=== PATIENT | female | born 2000 | race Hispanic/Latino ===

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

== ENCOUNTER 2018-01-04 17:02 | Emergency (ER) | payer SELFPAY ==
[~2018-01-04] VITALS: Ht 165.1 cm; Wt 90.7 kg
--- OUTSIDE RECORDS SUMMARY | 2018-01-04 17:05 | XMS REPORT ---
[facility] Address Unknown Phone Unavailable Care Team Providers Care Instrument Specialist Name Role Phone PRINCESS JOHNSTON Unavailable Unavailable Problems This patient has no known problems. Allergies, Adverse Reactions, Alerts This patient has no known allergies or adverse reactions. Medications This patient has no known medications. Results Test Description Test Time Test Comments Text Results Atomic Results Result Comments CHEST 2 VIEWS [place] [address] Patient Name: DENISE ROSA MR #: [id number] : 2000 Age/Sex: 17/F Req # : [id number] Adm Physician: Ordered by: MANUELA SENIOR TECHNICAL APPLICATIONS SPECIALIST Report #: [id number] Location: ER Room/Bed: Procedure: [id number] DX/CHEST 2 VIEWS Exam Date: 12/23/17 Exam Time : 1211 REPORT STATUS: Signed PROCEDURE: Frontal and lateral views of the chest. COMPARISON: None. INDICATIONS: CHILLS, FEVER, COUGH FOR 2 DAYS FINDINGS: Lines/tubes: None. Lungs: The lungs are well inflated and clear. There is no evidence of pneumonia or pulmonary edema. Pleura: There is no pleural effusion or pneumothorax. Heart and mediastinum: The heart and the mediastinum are normal. Bones: No acute bony abnormality. Upper abdomen: Multiple surgical clips noted adjacent to an upper lumbar vertebral body and a clip overlying the left upper quadrant. No free air under the diaphragm. IMPRESSION: No acute cardiopulmonary disease. Dictated by: Senthil Joel M.D. on at 12:34 Electronically approved by: Senthil Joel M.D. on 12/23 at 12:34 Dictated By: SENTHIL JOEL MD 1234 Transcribed By: LINDA on 12/23/17 1234 COPY TO: MANUELA SENIOR NP
--- OUTSIDE RECORDS SUMMARY | 2018-01-04 17:05 | XMS REPORT | Continuity of Care Document ---
Author Author [facility] Organization [facility] Address [address] [place] [address] Phone Unavailable Care Team Providers Care Rail Bonder Name Role Phone RALPH APODACA MD PCP Insurance Providers Guarantor Denise Rosa Address [address] [place] [address] Email [email or web address] [facility] Policy Number [id number] Subscriber's Name Catrachita Rosa A Relationship 32 Mother Group Number [id number] Group Name [employer] Effective Date 14 Advance Directives Directive Response Recorded Date/Time Does the patient have an advance directive? No 11/02/14 3:32pm If yes, is advance directive on file with [facility]? No 11/02/14 3:32pm If not on file with [facility] will patient provide a copy? No 08/02/14 11:39pm Problems Medical Problem Onset Date Status Abdominal pain 11/02/2014 Acute Fever 11/02/2014 Acute Flank pain 08/02/2014 Acute Hydronephrosis of right kidney 08/02/2014 Acute Pyelonephritis 08/02/2014 Acute Medications Current Home Medications Medication Dose Units Route Directions Days Qty Instructions Start Date Sertraline Hcl (Zoloft) 50 Mg Tablet 150 Mg Oral Daily 30 Tab Tramadol Hcl (Ultram 50MG*) 50 Mg Tab 50 Mg Oral Four Times Daily Past Home Medications Medication Directions Ordered Status Acetaminophen With Codeine (Tylenol With Codeine #3 Tablet) 1 Each Tablet, 300 Mg Oral Every 6 Hours as needed for Pain Discontinued Cefuroxime Axetil (Ceftin) 500 Mg Tablet, 500 Mg Oral Twice A Day Discontinued Phenazopyridine Hcl (Pyridium) 100 Mg Tablet, 50 Mg Oral Daily as needed for Bladder Spasms Discontinued U , 1 Tab Oral Three Times A Day as needed for Bl Discontinued Social History Social History Problem Response Recorded Date/Time Onset Date Status Hx Psychiatric Problems No 11/02/2014 3:32pm Not Applicable Not Applicable Hx Eating Disorder No 08/02/2014 11:39pm Not Applicable Not Applicable Hx Substance Use Disorder No 08/02/2014 11:39pm Not Applicable Not Applicable Hx Depression No 08/02/2014 11:39pm Not Applicable Not Applicable Hx Alcohol Use No 08/02/2014 11:39pm Not Applicable Not Applicable Hx Substance Use Treatment No 08/02/2014 11:39pm Not Applicable Not Applicable Hx Physical Abuse No 08/02/2014 11:39pm Not Applicable Not Applicable Hospital Discharge Instructions No hospital discharge instruction information available. Plan of Care Discharge Date 12/23/17 2:57pm Disposition HOME, SELF-CARE Condition at Discharge Stable Instructions/Education Provided Fever - Adult Flu - Adult Forms Provided Work/School Excuse Prescriptions See Medication Section Referrals RALPH APODACA MD Order Date: As needed Address: [address] [place] [id number] Additional Instructions/Education DC Instructions: Call for follow up appointment to see your medical provider or the referral listed. Take the medication as prescribed. As discussed at the bedside, drink fluids, rest and return to the ER for any fever, shortness of breath, chest pain, trouble handling your oral secreations or any new concerns. Functional Status No functional status information available. Allergies, Adverse Reactions, Alerts No known allergies. Immunizations No immunization information available. Vital Signs Acute Vital Signs Vital Response Date/Time Temperature (Fahrenheit) 100.8 degrees F (97.6 - 99.5) 12/23/2017 2:58pm Pulse Pulse Rate (adult) 94 bpm (60 - 90) 12/23/2017 2:58pm Respiratory Rate 16 bpm (12 - 24) 12/23/2017 2:58pm Blood Pressure 142/71 mm Hg 12/23/2017 2:58pm Height 5 ft 5 in 12/23/2017 11:58am Weight 200 lb 12/23/2017 11:58am Body Mass Index 33.3 kg/m^2 12/23/2017 11:58am Results Laboratory Results Test Name Result Units Flags Reference Collection Date/Time Result Date/ Time Comments Influenza Virus Types A,B Antigen POSITIVE FLU B H NEGATIVE 12/23/2017 12:00pm 12/23/2017 2:04pm Results called to sofy whitley at 1401 on 12/23/17 by Adali Salomon. RB OK. Results faxed to in infection control at 1401 on 12/23/17 by Adali Salomon. Group A Streptococcus Screen NEGATIVE NEGATIVE 12/23/2017 12:00pm 2:04pm Procedures Procedure Status Date Provider(s) X-ray of chest, two views Active 12/23/17 MANUELA SENIOR DRUM PULLER Encounters Encounter Location Arrival/Admit Date Discharge/Depart Date Attending Provider Departed Emergency Room [facility] 12/23/17 11:47am 12/23 2:57pm PRINCESS JOHNSTON MD
[2018-01-04] MEDS ORDERED: IBUPROFEN 600 MG TAB PO STA (17:15)
--- NOTE | 2018-01-04 17:57 | Diagnostic Imaging Report ---
EXAMINATION: CHEST 2 VIEWS INDICATION: \S\R/O PNEUMONIA \[id number] \S\1730 \S.br\ COMPARISON: 12/23/2017 FINDINGS: PA and lateral views TUBES and LINES: None. LUNGS: Lungs are well inflated. Right upper lobe opacification. PLEURA: No pleural effusion or pneumothorax. HEART AND MEDIASTINUM: The cardiomediastinal silhouette is unremarkable. BONES AND SOFT TISSUES: No acute osseous lesion. Soft tissues are unremarkable. UPPER ABDOMEN: No free air under the diaphragm. IMPRESSION: Right upper lobe pneumonia. Signed by: Dr. Jose Miguel Wells MD on 01/04/2018 5:53 PM
[2018-01-04] MEDS ORDERED: CEFTRIAXONE SOD 1 GM VIAL IM ONE (18:00)
== END 2018-01-04 18:32 | disposition home or self-care (01) ==
LOC: ER 17:02
DX: R07.1 Chest pain on breathing (principal); R50.9 Fever, unspecified; R05 Cough; J15.9 Unspecified bacterial pneumonia
CPT/HCPCS: 71046; 99283; J0696

== ENCOUNTER 2018-11-29 22:47 | Emergency (ER) | payer SELFPAY ==
[~2018-11-29] VITALS: Ht 165.1 cm; Wt 68.0 kg
[2018-11-30] MEDS ORDERED: HYDROCODONE/APAP 5MG-325MG TAB PO ONE
--- NOTE | 2018-11-30 01:30 | Diagnostic Imaging Report ---
ANKLE 3VIEW LT - HOPD, FOOT 3 VIEW LT - HOPD Comparison: None Clinical history: Pain Findings: Left ankle and foot: Mild soft tissue swelling about the lateral ankle. Subtle linear lucency along the distal fibula as seen on oblique view. Ankle mortise is intact. Impression: Suspected nondisplaced fracture of the distal fibula. Correlate with site of pain and consider short-term follow-up radiographs in 1-2 weeks. Signed by: Dr Ellen Sierra MD on 11/30/2018 1:26 AM
== END 2018-11-30 01:16 | disposition home or self-care (01) ==
LOC: FSED 22:47
DX: S93.612A Sprain of tarsal ligament of left foot, initial encounter (principal); S93.492A Sprain of other ligament of left ankle, initial encounter; X50.1XXA Overexertion from prolonged static or awkward postures, initial encounter; Y99.0 Civilian activity done for income or pay
CPT/HCPCS: 81025; 99283

== ENCOUNTER 2020-01-28 05:44 | Emergency (ER) | payer OTHER ==
[~2020-01-28] VITALS: Ht 165.1 cm; Wt 97.5 kg
[2020-01-28] MEDS ORDERED: LIDOCAINE HCL 1% LOCAL INJ 20 ML VIAL ONE (06:24)
[2020-01-28 07:00] VITALS: BP 137/73
== END 2020-01-28 07:00 | disposition home or self-care (01) ==
LOC: FSED 05:44
DX: L05.01 Pilonidal cyst with abscess (principal); L03.317 Cellulitis of buttock
CPT/HCPCS: 10081; 99283; J2001

== ENCOUNTER 2020-07-13 16:05 | Emergency (ER) | payer OTHER ==
[~2020-07-13] VITALS: Ht 165.1 cm; Wt 97.5 kg
[2020-07-13] MEDS ORDERED: KETOROLAC TROMETHAMINE 30 MG/ML VIAL IM STA (16:20)
[2020-07-13] MEDS ORDERED: ONDANSETRON HCL 4 MG ORAL DISINTEGRATING TAB PO ONE (16:30)
--- NOTE | 2020-07-13 16:55 | Diagnostic Imaging Report ---
Exam: Head CT without contrast History: Headache Comparison studies: Prior head CT 11/04/2014 is unavailable on the PACS for comparison at the time of dictation. Technique: Axial images were obtained from the skull base to the vertex. Coronal and sagittal images reconstructed from the axial data. Dose modulation, iterative reconstruction, and/or weight based adjustment of the mA/kV was utilized to reduce the radiation dose to as low as reasonably achievable. Radiation dose: Total DLP: 969.14 mGy*cm. Estimated effective dose: DLP x 0.015 Intravenous contrast: None Findings: Scalp: No abnormalities. Bones: No fractures, blastic or lytic lesions. Brain sulci: Appropriate for age. Ventricles: Normal in size and configuration. No hydrocephalus. Extra-axial spaces: No masses, no fluid collection. Parenchyma: No abnormal densities. No masses, acute hemorrhage, acute or chronic vascular insults. Sellar/suprasellar region: No abnormalities. Craniocervical junction: Patent foramen magnum. No Chiari one malformation. Minimal cavities and mastoids: Clear. Included paranasal sinuses: Clear. IMPRESSION: No abnormalities. Signed by: Dr. Jordan Baltazar M.D. on 07/13/2020 4:52 PM
--- OUTSIDE RECORDS SUMMARY | 2020-07-13 17:13 | XMS REPORT | Clinical Summary ---
Author Author [facility] Address Unknown Phone Unavailable Care Team Providers Care Wildlife Removal Specialist Name Role Phone Pcp, No PCP Unavailable Allergies No Known Allergies Medications End Date Status Medication Sig Dispensed Refills Start Date 09/08/2019 nitrofurantoin, Take 1 20 capsule 0 macrocrystal-monohydrate, capsule (100 9 (MACROBID) 100 MG capsule mg total) by mouth 2 (two) times daily for 10 days. Active Problems Not on file Encounters Care Team Description Date Type Specialty Shant Rocha MD Abdominal pain, unspecified abdominal lo cation (Primary Dx); Acute cystitis without hematuria 08/29/2019 Emergency Emergency Medicine 08/29/2019 Travel after 07/13/2019 Social History Date Tobacco Use Types Packs/Day Years Used Never Smoker Smokeless Tobacco: Never Used Alcohol Use Drinks/Week oz/Week Comments Yes Sex Assigned at Date Recorded Not on file Industry Job Start Date Occupation Not on file Not on file Not on file Travel End Travel History Travel Start No recent travel history available. Last Filed Vital Signs Time Taken Vital Sign Reading 08/29/2019 2:41 PM CDT Blood Pressure 120/67 08/29/2019 2:41 PM CDT Pulse 89 08/29/2019 2:41 PM CDT Temperature 37.1 C (98.7 F) 08/29/2019 2:41 PM CDT Respiratory Rate 16 08/29/2019 10:48 AM CDT Oxygen Saturation 98% - Inhaled Oxygen - Concentration 08/29/2019 10:48 AM CDT Weight 108 kg (238 lb) - Height - - Body Mass Index - Plan of Treatment Not on file Procedures Comments Procedure Name Priority Date/Time Associated Diag nosis CT ABDOMEN/PELVIS WITHOUT STAT 08/29/2019 IV CONTRAST 1:36 PM CDT CBC W/PLT COUNT & AUTO STAT 08/29/2019 DIFFERENTIAL 11:16 AM CDT URINALYSIS W/ MICROSCOPIC STAT 08/29/2019 11:16 AM CDT SCREEN, URINE STAT 08/29/2019 11:16 AM CDT HEPATIC FUNCTION PANEL STAT 08/29/2019 11:16 AM CDT BASIC METABOLIC PANEL (7) STAT 08/29/2019 11:16 AM CDT LIPASE STAT 08/29/2019 11:16 AM CDT CBC W/PLT COUNT & AUTO STAT 08/29/2019 DIFFERENTIAL 11:16 AM CDT after 07/13/2019 Results * CT abdomen/pelvis without iv contrast (08/29/2019 1:36 PM CDT) Specimen Narrative Performed At FINAL REPORT [facility] ABDOMINAL AND PELVIS CT DATED 08/29/2019 CLINICAL INFORMATION:RLQ abdominal pain, appendicitis suspected (Age > 14y) r/o appendicitis TECHNIQUE:Axial images of the abdom en and pelvis were obtained from diaphragm to the pubic symphysis with G I contrast. Intravenous contrast was not given. This exam was performed according to [facility] departmental dose-optimization program, which includ es automated exposure control, adjustment of the mA and/or kV accordin g to patient size and/or use of interactive reconstruction technique . COMMENT: Liver and spleen are normal in size without focal abnormality.Gallbladder is contract ed. No gallstone or biliary dilatation is noted. Pancreas and adrenals are unremarkable. Left kidney is surgically absent. There is compensatory enlargement of the right kidney. No hydronephrosis, hydroureter, or urolithiasis is seen in the right kidney. The small and large bowel are unremarka ble. Appendix is normal in caliber. Uterus and ovaries are unremarkable. Th e urinary bladder is minimally distended. No mass, adenopathy or ascites is prese nt. IMPRESSION: 1. Status post left nephrectomy. 2. Otherwise unremarkable CT of the abd omen and pelvis. Signed: Georgiana Chin MD Report Verified Date/Time: 9 14:13:22 Reading Location: [facility] C013W Consult Reading Room Procedure Note Interface, External Ris In - 08/29/2019 2:15 PM CDT FINAL REPORT ABDOMINAL AND PELVIS CT DATED 08/29/2019 CLINICAL INFORMATION: RLQ abdominal pain, appendicitis suspected (Age > 14y) r/o appendicitis TECHNIQUE: Axial images of the abdomen and pelvis were obtained from diaphragm to the pubic symphysis with GI contrast. Intravenous contrast was not given. This exam was performed according to our departmental dose-optimization program, which includes automated exposure control, adjustment of the mA and/or kV according to patient size and/or use of interactive reconstruction technique. COMMENT: Liver and spleen are normal in size without focal abnormality. Gallbladder is contracted. No gallstone or biliary dilatation is noted. Pancreas and adrenals are unremarkable. Left kidney is surgically absent. There is compensatory enlargement of the right kidney. No hydronephrosis, hydroureter, or urolithiasis is seen in the right kidney. The small and large bowel are unremarkable. Appendix is normal in caliber. Uterus and ovaries are unremarkable. The urinary bladder is minimally distended. No mass, adenopathy or ascites is present. IMPRESSION: 1. Status post left nephrectomy. 2. Otherwise unremarkable CT of the abdo men and pelvis. Signed: Georgiana Chin MD Report Verified Date/Time: 08/29/2019 14:13:22 Reading Location: [facility] C013W Consult Reading Room Performing Organization Address City/State/Zipcode Ph one Number GE RIS * CBC with platelet count + automated diff (08/29/2019 11:16 AM CDT) WBC 11.8 (H) 4.0 - 10.0 K/L [facility], COUNT INCLUDES THE [facility] [place] RBC 4.49 4.00 - 5.00 M/L [facility], COUNT INCLUDES THE [facility] [place] Hemoglobin 12.2 12.0 - 15.0 GM/DL [facility], COUNT INCLUDES THE [facility] [place] Hematocrit 37.4 36.0 - 45.0 % [facility] [place] MCV 83.1 82.0 - 99.0 fL [facility] [place] MCH 27.1 27.0 - 33.0 pg [facility] [place] MCHC 32.6 32.0 - 36.0 GM/DL [facility] [place] RDW 16.5 (H) 10.3 - 14.2 % [facility] [place] Platelets 188 150 - 430 K/CU MM [facility] [place] MPV 9.6 6.5 - 10.5 fL [facility] % Neutros 83 % [facility] % Lymphs 8 % [facility] [place] % Monos 7 % [facility] % Eos 1 % [facility] [place] % Baso 1 % [facility] [place] # Neutros 9.83 (H) 1.80 - 8.00 K/L [facility] [place] # Lymphs 0.92 (L) 1.48 - 4.50 K/L [facility] [place] # Monos 0.81 0.00 - 1.30 K/L [facility] [place] # Eos 0.17 0.00 - 0.50 K/L [facility], COUNT INCLUDES THE [facility] [place] # Baso 0.07 0.00 - 0.20 K/L [facility], COUNT INCLUDES THE [facility] [place] Specimen Blood Performing Organization Address City/[facility] Ph one Number [address] [address] [facility] -[phone] [place] [address], COUNT INCLUDES THE [facility] [place] * Screen, urine (08/29/2019 11:16 AM CDT) Preg Test, Ur Negative [facility], COUNT INCLUDES [facility] [place] Specimen Urine Performing Organization Address City/[facility] Ph one Number [address] [place], [place] [id number] [place] [address], COUNT INCLUDES THE [facility] [place] * Urinalysis w/Microscopic (08/29/2019 11:16 AM CDT) Color, UA Yellow [facility] [place] Clarity, UA Slightly Hazy [facility], COUNT INCLUDES THE [facility] [place], [facility] Specific Ethel, UA 1.015 1.001 - 1.035 [facility] [place] pH, UA 7.0 5.0 - 8.0 [facility], COUNT INCLUDES THE [facility] [place], [facility] Protein, UA Negative Negative [facility] [place] Glucose, UA Negative Negative [facility], COUNT INCLUDES THE [facility] [place], [facility] Ketones, UA Negative Negative [facility] [place] Bilirubin, UA Negative Negative [facility], COUNT INCLUDES THE [facility] [place], [facility] Blood, UA Negative Negative [facility], COUNT INCLUDES THE [facility] [place], [facility] Nitrite, UA Negative Negative [facility], [facility], [facility] Leukocytes, UA Moderate (A) Negative [facility], [facility], [facility] Urobilinogen, UA 0.2 0.2 - 1.0 mg/dL [facility] Bacteria, UA Moderate [facility], [facility] RBC, UA None Seen /HPF [facility] WBC, UA 20-50 /HPF [facility] SQUAMOUS EPITHELIAL 5-10Comment: Clue cells seen. /HPF [facility] Specimen Source [facility], [facility], [facility] Specimen Urine Performing Organization Address [facility] Ph one Number [address] [address] [phone] [place] [address], [facility] * Lipase (08/29/2019 11:16 AM CDT) Lipase 35 (L) 40 - 240 U/L [facility] Specimen Blood Performing Organization Address [facility] Ph one Number [address] [address] -[phone] [place] [address], [facility] * Hepatic function panel (08/29/2019 11:16 AM CDT) Protein, Total 7.3 6.0 - 8.5 gm/dL [facility] Albumin 4.1 3.5 - 5.0 g/dL [facility], [facility], [facility] Total Bilirubin 0.9 0.1 - 1.2 mg/dL [facility], [facility] Bilirubin, Direct 0.3 0.0 - 0.4 mg/dL [facility], COUNT INCLUDES THE [facility], [facility] Alkaline Phosphatase 124 (H) 30 - 115 U/L [facility], COUNT INCLUDES THE [facility], [facility] AST 28 5 - 40 U/L [facility], COUNT INCLUDES [facility] [place] ALT 39 5 - 50 U/L [facility], COUNT INCLUDES THE [facility] [place], [facility] Specimen Blood Performing Organization Address [facility] Ph one Number [facility] [address] [place] [address] [facility], COUNT INCLUDES THE [facility] [place], [facility] * Basic Metabolic Panel (08/29/2019 11:16 AM CDT) Sodium 137 135 - 148 meq/L [facility], [facility], [facility] Potassium 3.8 3.6 - 5.5 meq/L [facility], COUNT INCLUDES THE [facility] [place], [facility] Chloride 104 98 - 106 meq/L [facility] CO2 24 24 - 32 meq/L [facility], COUNT INCLUDES [facility] BUN 10 10 - 26 mg/dL [facility], COUNT INCLUDES THE [facility], [facility] Creatinine 0.63 0.50 - 1.20 mg/dL [facility], COUNT INCLUDES THE [facility] [place], [facility] Glucose 94 70 - 110 mg/dL [facility], COUNT INCLUDES THE [facility] [place], [facility] Calcium 8.9 8.5 - 10.5 mg/dL [facility], COUNT INCLUDES THE [facility] [place], [facility] EGFR Comment: INSUFFICIENT CLINICAL [facility] DATA TO CALCULATE ESTIMATED [facility] GFR. [place], COUNT INCLUDES THE [facility], [facility] Specimen Blood Performing Organization Address City/[facility] Ph one Number [facility] [id number] [place] [address] [facility], [facility] after 07/13/2019
--- OUTSIDE RECORDS SUMMARY | 2020-07-13 17:14 | XMS REPORT | Continuity of Care Document ---
Author Author [facility] t Organization [facility] Address [address] [place] [address] Phone Unavailable Care Team Providers Care Instructor Hairspring Name Role Phone NO, PCP PCP Unavailable JSESA CHAPPELL Attphys Unavailable Aurora Harrison MD Attphys AURORA HARRISON Attphys Unavailable Esthela CONNELLY Attphys Unavailable Samantha MCGRAW Attphys Unavailable Casandra JOHNSTON Attphys Unavailable Payers Payer Name Policy Type Policy Number Effective Date Expiration Date Jennifer rollins [facility] [id number] [facility] [id number] 2014 00:00:00 [facility] Problems Condition Name Condition Details Condition Category Status Onset Date Resolution Date Last Treatment Date Treating Clinician Comments Source Abdominal pain Abdominal pain Problem Active 2014-11-02 00:00:00 [facility] Fever Fever Problem Active 2014-11-02 00:00:00 [facility] Flank pain Flank pain Problem Active 2014-08-02 00:00:00 [facility] Hydronephrosis of right kidney Hydronephrosis of right kidney Probl em Active 2014-08-02 00:00:00 [facility] Pyelonephritis Pyelonephritis Problem Active 2014-08-02 00:00:00 [facility] Allergies, Adverse Reactions, Alerts Allergy Name Allergy Type Status Severity Reaction(s) Onset Date Inacti ve Date Treating Clinician Comments Source No Known Allergies DA Active U 2020-02-27 00:00:00 [facility] No Known Allergies DA Active U 2011-09-12 00:00:00 [facility] Social History Social Habit Start Date Stop Date Quantity Comments Source Sex Assigned At [facility] Smoking Status Start Date Stop Date Source Never smoker [facility] Medications Ordered Medication Name Filled Medication Name Start Date Stop Da te Current Medication? Ordering Clinician Indication Dosage Frequency Signature (SIG) Comments Components Source nitrofurantoin, macrocrystal-monohydrate, (MACROBID) 100 MG capsule 2019-08-29 00:00:00 2019-09-08 23:59:00 No 100mg Q.5D Take 1 capsule (100 mg total) by mouth 2 (two) times daily for 10 days. [facility] Sertraline Hcl (Zoloft) 50 Mg Tablet Sertraline Hcl (Zoloft) 50 Mg Tablet Yes 150 Daily [facility] Tramadol Hcl (Ultram 50MG*) 50 Mg Tab Tramadol Hcl (Ultram 50MG*) 5 0 Mg Tab Yes 50 Four Times Daily [facility] Acetaminophen With Codeine (Tylenol With Codeine #3 Tablet) 1 Each Tablet, 300 Mg Oral Acetaminophen With Codeine (Tylenol With Codeine #3 Tablet) 1 Each Tablet, 300 Mg Oral 2014-11-07 00:00:00 No 300 Every 6 Hours as needed for Pain [facility] Cefuroxime Axetil (Ceftin) 500 Mg Tablet, 500 Mg Oral Cefuroxime Axetil (Ceftin) 500 Mg Tablet, 500 Mg Oral 2014-11-01 00:00:00 No 500 Twice A Day [facility] Phenazopyridine Hcl (Pyridium) 100 Mg Tablet, 50 Mg Or al Phenazopyridine Hcl (Pyridium) 100 Mg Tablet, 50 Mg Oral 2014-11-01 00:00:00 No 50 Daily as needed for Bladder Spasms [facility] U , 1 Tab Oral U , 1 Tab Oral 2014-11-01 00:00:00 No 1 Three Times A Day as needed for Bl [facility] Vital Signs Vital Name Observation Time Observation Value Comments Source Systolic blood pressure 2019-08-29 14:41:00 120 mm[Hg] [facility] Diastolic blood pressure 2019-08-29 14:41:00 67 mm[Hg] [facility] Heart rate 2019-08-29 14:41:00 89 /min [facility] Body temperature 2019-08-29 14:41:00 37.06 Mirta [facility] Respiratory rate 2019-08-29 14:41:00 16 /min [facility] Body weight Measured 2019-08-29 10:48:00 107.956 kg [facility] Oxygen saturation in Arterial blood by Pulse oximetry 2018-10 10:48:00 98 /[facility] Procedure Date / Time Performed Performing Clinician [facility] bri CT ABDOMEN/PELVIS WITHOUT IV CONTRAST 2019-08-29 13:36:00 Shant Harrison [facility] LIPASE 2019-08-29 11:16:00 Shant Harrison [facility] BASIC METABOLIC PANEL (7) 2019-08-29 11:16:00 Shant Harrison [facility] HEPATIC FUNCTION PANEL 2019-08-29 11:16:00 Shant Harrison [facility] SCREEN, URINE 2019-08-29 11:16:00 Shant Harrison I [facility] URINALYSIS W/ MICROSCOPIC 2019-08-29 11:16:00 Shant Harrison [facility] CBC W/PLT COUNT & AUTO DIFFERENTIAL 2019-08-29 11:16:00 Ashwini Harrison [facility] Encounters Start Date/Time End Date/Time Encounter Type Admission Type [facility] Care Department Encounter ID Source 2020-01-28 05:44:00 2020-01-28 07:00:00 Departed Emergency Room [facility] [id number] [facility] 2019-11-02 14:07:00 2019-11-02 14:37:00 Departed Emergency Room [facility] [id number] [facility] 2018-11-29 22:47:00 2018-11-30 01:16:00 Departed Emergency Room 1 NESHA CONNELLY [facility] [id number] [facility] 2018-01-04 17:02:00 2018-01-04 18:32:00 Departed Emergency Room ER KASANDRA MCGRAW [facility] [id number] [facility] 2017-12-23 11:47:00 2017-12-23 14:57:00 Departed Emergency Room ER PRINCESS JOHNSTON [facility] [id number] [facility] Results Test Description Test Time Test Comments Results Result Comments Source CT BRAIN WO-HOPD 2020-07-13 16:48:00 [place] [address] Patient Name: DENISE ROSA MR #: [id number] : 2000 Age/Sex: 20/F Req #: [id number] Adm Physician: Ordered by: JESSA CHAPPELL MD Report #: [id number] Location: FS Room/Bed: Procedure: [id number] HOPD/CT BRAIN WO-HOPD Exam Date: 07/13/20 Exam Time: 1637 REPORT STATUS: Signed Exam: Head CT without contrast History: Headache Comparison studies: Prior head CT 11/04/2014 is unavailable on the PACS for comparison at the time of dictation. Technique: Axial images were obtained from the skull base to the vertex. Coronal and sagittal images reconstructed from the axial data. Dose modulation, iterative reconstruction, and/or weight based adjustment of the mA/kV was utilized to reduce the radiation dose to as low as reasonably achievable. Radiation dose: Total DLP: 969.14 mGy*cm. Estimated effective dose: DLP x 0.015 Intravenous contrast: None Findings: Scalp: No abnormalities. Bones: No fractures, blastic or lytic lesions. Brain sulci: Appropriate for age. Ventricles: Normal in size and configuration. No hydrocephalus. Extra-axial spaces: No masses, no fluid collection. Parenchyma: No abnormal densities. No masses, acute hemorrhage, acute or chronic vascular insults. Sellar/suprasellar region: No abnormalities. Craniocervical junction: Patent foramen magnum. No Chiari one malformation. Minimal cavities and mastoids: Clear. Included paranasal sinuses: Clear. IMPRESSION: No abnormalities. Signed by: Dr. Isabella Francisco M.D. on 07/13/2020 4:52 PM Dictated By: ISABELLA FRANCISCO MD 51 Transcribed By: BRIAN on 07/13/201651 COPY TO: JESSA CHAPPELL MD - ANASTASIYA AB/PEL/SC/LTD 2020-05-05 18:58:00 Name: DENISE ROSA [facility] [place] [place] : 2000 Age/S: 20 / F [address] [place] [address] Unit #: [id number] Loc: [place] [address] Phys: Justen Virgen MD Acct: [id number] Dis Date: Status: PRE ER PHONE #: [phone] Exam Date: 05/05/2020 1849 FAX #: [phone] Reason: see US Pelvic Non OB Complete EXAMS: CPT CODE: [id number] ANASTASIYA AB/PEL/SC/LTD 46717 PROCEDURE: PELVIC ULTRASOUND INDICATION: heavy vaginal bleeding one month COMPARISON: There are no previous relevant studies available for correlation. TECHNIQUE: Grayscale, color and Doppler transabdominal and transvaginal imaging of the pelvis was performed with standard technique. Transvaginal ultrasound is obtained for further evaluation of the endometrium and adnexal regions. LIMITATIONS: Transabdominal technique with suboptimal acoustical window. FINDINGS: UTERUS: Uterus measures 8.3 x 5.2 x 6.1 cm. No uterine mass. Endometrium is estimated 8 mm AP thickness. No endom etrial mass fluid collection or increased vascularity to indicate retained products of conception. RIGHT OVARY: The right ovary measures 3.3 x 2.5 x 2.7 cm. Small cyst within the ovary measuring 1.8 x 1.3 x 1.7 cm. Flow present in the ovary with arterial waveform obtained. LEFT OVARY: The left ovary measures 3.1 x 1.9 x 1.6 cm. Normal morphology. Internal flow with arterial waveform obtained. BLADDER: Contracted, otherwise unremarkable. Comments: No adnexal masses. No free intraperitoneal fluid. IMPRESSION: Normal transabdominal pelvic ultrasound. No sonographic evidence for retained products of conception. SL: KL-H at 1858 Reported and signed by: Hugo Cervantes M.D. PAGE 1 Signed Report (CONTINUED) Name: DENISE ROSA [facility] [place] : 2000 Age/S: 20 / F [address] [place] [address] Unit #: [id number] Loc: [place] [address] Phys: Justen Virgen MD Acct: [id number] Dis Date: Status: PRE ER PHONE #: [phone] Exam Date: 05/05/2020 1849 FAX #: [phone] Reason: see US Pelvic Non OB Complete EXAMS: CPT CODE: [id number] DUP AB/PEL/SC/LTD 08145 <Continued> CC: Justen Virgen MD; Sarah Trejo MD Technologist: Sergio West Trndeb Date/Time: 05/05/2020 (1857) Nunu Orig Print D/T: S: 05/05/2020 (1900) Probe: PAGE 2 Signed Report - US PELVIS COMPLETE 2020-05-05 18:58:00 Name: DENISE ROSA [facility] [place] : 2000 Age/S: 20 / F [address] [place] [address] Unit #: [id number] Loc: [place] [address] Phys: Justen Virgen MD Acct: [id number] Dis Date: Status: PRE ER PHONE #: [phone] Exam Date: 05/05/20201847 FAX #: [phone] Reason: heavy vaginal bleeding one month EXAMS: CPT CODE: [id number] US PELVIS COMPLETE 44285 PROCEDURE: PELVIC ULTRASOUND INDICATION: heavy vaginal bleeding one month COMPARISON: There are no previous relevant studies available for correlation. TECHNIQUE: Grayscale, color and Doppler transabdominal and transvaginal imaging of the pelvis was performed with standard technique. Transvaginal ultrasound is obtained for further evaluation of the endometrium and adnexal regions. LIMITATIONS: Transabdominal technique with suboptimal acoustical window. FINDINGS: UTERUS: Uterus measures 8.3 x 5.2 x 6.1 cm. No uterine mass. Endometrium is estimated 8 mm AP thickness. No endom etrial mass fluid collection or increased vascularity to indicate retained products of conception. RIGHT OVARY: The right ovary measures 3.3 x 2.5 x 2.7 cm. Small cyst within the ovary measuring 1.8 x 1.3 x 1.7 cm. Flow present in the ovary with arterial waveform obtained. LEFT OVARY: The left ovary measures 3.1 x 1.9 x 1.6 cm. Normal morphology. Internal flow with arterial waveform obtained. BLADDER: Contracted, otherwise unremarkable. Comments: No adnexal masses. No free intraperitoneal fluid. IMPRESSION: Normal transabdominal pelvic ultrasound. No sonographic evidence for retained products of conception. SL: KL-H at 1858 Reported and signed by: Hugo Cervantes M.D. PAGE 1 Signed Report (CONTINUED) Name: DENISE ROSA [facility] Lesia Faust : 2000 Age/S: 20 / F [address] [place] [address] Unit #: [id number] Loc: [place] [address] Phys: Justen Virgen MD Acct: [id number] Dis Date: Status: PRE ER PHONE #: [phone] Exam Date: 05/05/20201847 FAX #: [phone] Reason: heavy vaginal bleeding one month EXAMS: CPT CODE: [id number] US PELVIS COMPLETE 46517 <Continued> CC: Justen Virgen MD; Sarah Trejo MD Technologist: Sergio West Trnscb Date/Time: 05/05/2020 (1857) Nunu Orig Print D/T: S: 05/05/2020 (279) Probe: PAGE 2 Signed Report URINALYSIS COMPLETE 2020-05-05 18:39:00 Test Item UA COLOR (test code = COLU) RED YEL/STRAW A UA APPEARANCE (test code = APPU) SL CLOUDY CLEAR UA GLUCOSE DIPSTICK (test code = DGLUU) NEGATIVE NEGATIVE UA BILIRUBIN DIPSTICK (test code = BILU) NEGATIVE NEGATIVE UA KETONE DIPSTICK (test code = KETU) NEGATIVE NEGATIVE UA SPECIFIC GRAVITY (test code = SGU) 1.013 1.005-1.030 N UA BLOOD DIPSTICK (test code = IDANIA) 3+ NEGATIVE A UA PH DIPSTICK (test code = DINAH) 6.0 5.0-7.0 N UA PROTEIN DIPSTICK (test code = PROU) 2+ NEGATIVE A UA UROBILINIOGEN DIPSTICK (test code = URO) 0.2 mg/dL 0.2-1.0 UA NITRITE DIPSTICK (test code = ANGELICA) NEGATIVE NEGATIVE UA LEUKOCYTE ESTERASE DIPSTICK (test code = LEUU) TRACE NEGA TIVE A UA RBC (test code = RBCU) >50 RBC/HPF 0-3 A UA WBC NO REFLEX (test code = WBCUCL) 4-9 WBC/HPF 0-3 A UA BACTERIA (test code = BACU) NONE SEEN /HPF NONE SEEN UA SQUAMOUS CELLS (test code = SQU) 0-5 /HPF NONE SEEN UA MUCUS (test code = MUCU) TRACE /LPF NONE SEEN PROTHROMBIN [id number] 18:33:00* Test Item Value Reference Range Interpretation Comments PROTHROMBIN TIME PATIENT (test code = PTP) 11.1 SECONDS 9.3-12.9 N INTERNATIONAL NORMAL RATIO (test code = INR) 1.0 0.8-1.2 N TARGET INR BY INDICATION Indication INR1. Prophylaxis of venous thrombosis 2.0 - 3.0 (orthopedic surgery), Prophylaxis of venous thrombosis (other than high-risk surgery), Treatment of Deep Vein Thrombosis/Pulmonary Embolism, Prevention of systemic embolism - Tissue heart valves, Acute Myocardial Infarction (to prevent systemic embolism), Valvular heart disease, Atrial Fibrillation, Bileaflet mechanical valve in aortic position.2. Mechanical prosthetic valves (high risk), 2.5 - 3.5 Presence of Lupus Anticoagulant or Antiphospholipid Antibodies, Prevention of systemic embolism - Acute Myocardial Infarction (to prevent recurrent infarct). CBC W/AUTO [id number] 18:27:00* Test Item Value Reference Range Interpretation Comments WHITE BLOOD CELL (test code = WBC) 8.46 x10 3/uL 4.5-11.0 RED BLOOD CELL (test code = RBC) 4.50 x10 6/uL 3.54-5.02 N HEMOGLOBIN (test code = HGB) 11.0 g/dL 11.0-15.0 N HEMATOCRIT (test code = HCT) 36.3 % 33.0-45.0 N MEAN CELL VOLUME (test code = MCV) 80.7 fL 81.0-99.0 L MEAN CELL HGB (test code = MCH) 24.4 pg 27.0-33.0 L MEAN CELL HGB CONCETRATION (test code = MCHC) 30.3 g/dL 33.0-37. 0 L RED CELL DISTRIBUTION WIDTH CV (test code = RDW) 17.1 % 11.5- 14.5 H RED CELL DISTRIBUTION WIDTH SD (test code = RDW-SD) 48.8 fL 37 .0-54.0 N PLATELET COUNT (test code = PLT) 202 x10 3/uL 150-400 N MEAN PLATELET VOLUME (test code = MPV) 12.9 fL 7.0-9.0 H NEUTROPHIL % (test code = NT%) 57.8 % 56.0-77.0 N IMMATURE GRANULOCYTE % (test code = IG%) 0.4 % 0.0-2.0 N LYMPHOCYTE % (test code = LY%) 33.0 % 14.0-32.0 H MONOCYTE % (test code = MO%) 5.6 % 4.8-9.0 N EOSINOPHIL % (test code = EO%) 2.7 % 0.3-3.7 N BASOPHIL % (test code = BA%) 0.5 % 0.0-2.0 N NUCLEATED RBC % (test code = NRBC%) 0.0 % 0-0 N NEUTROPHIL # (test code = NT#) 4.90 x10 3/uL 2.0-7.6 N IMMATURE GRANULOCYTE # (test code = IG#) 0.03 x10 3/uL 0.00-0.03 N LYMPHOCYTE # (test code = LY#) 2.79 x10 3/uL 1.0-3.8 N MONOCYTE # (test code = MO#) 0.47 x10 3/uL 0.1-0.8 N EOSINOPHIL # (test code = EO#) 0.23 x10 3/uL 0.0-0.2 H BASOPHIL # (test code = BA#) 0.04 x10 3/uL 0.0-0.2 N NUCLEATED RBC # (test code = NRBC#) 0.00 x10 3/uL 0.0-0.1 N MANUAL DIFF REQUIRED (test code = MDIFF) NO COMPREHENSIVE METABOLIC [id number] 18:23:00* Test Item Value Reference Range Interpretation Comments SODIUM (test code = NA) 138 mEq/L 134-147 N POTASSIUM (test code = K) 3.9 mEq/L 3.4-5.0 N CHLORIDE (test code = CL) 110 mEq/L 100-108 H CARBON DIOXIDE (test code = CO2) 22 mEq/L 21-33 N ANION GAP (test code = GAP) 10 0-20 N GLUCOSE (test code = GLU) 84 mg/dL 70-110 N BLOOD UREA NITROGEN (test code = BUN) 17 mg/dL 7-18 N GLOMERULAR FILTRATION RATE (test code = GFR) 78.3 110-120 L Units of measure = ml/min/1.73 m2 CREATININE (test code = CREAT) 0.9 mg/dL 0.6-1.3 N TOTAL PROTEIN (test code = PROT) 7.0 g/dL 6.4-8.2 N ALBUMIN (test code = ALB) 3.30 g/dL 3.4-5.0 L CALCIUM (test code = CA) 8.3 mg/dL 8.0-10.5 N BILIRUBIN TOTAL (test code = BILT) 0.2 MG/DL <1.5 N SGOT/AST (test code = AST) 29 IUnit/L 15-37 N SGPT/ALT (test code = ALT) 67 IUnit/L 15-65 H ALKALINE PHOSPHATASE TOTAL (test code = ALKP) 143 IUnit/L 20-125 H HCG SERUM [id number] 18:23:00* Test Item Value Reference Range Interpretation Comments HCG SERUM QUAL (test code = HCGQL) SERUM NEGATIVE NEGATIVE COMPREHENSIVE METABOLIC [id number] 18:17:00* Test Item Value Reference Range Interpretation Comments SODIUM (test code = NA) 138 mEq/L 134-147 N POTASSIUM (test code = K) 3.9 mEq/L 3.4-5.0 N CHLORIDE (test code = CL) 110 mEq/L 100-108 H CARBON DIOXIDE (test code = CO2) 22 mEq/L 21-33 N ANION GAP (test code = GAP) 10 0-20 N GLUCOSE (test code = GLU) 84 mg/dL 70-110 N BLOOD UREA NITROGEN (test code = BUN) 17 mg/dL 7-18 N GLOMERULAR FILTRATION RATE (test code = GFR) 110-120 CREATININE (test code = CREAT) mg/dL 0.6-1.3 TOTAL PROTEIN (test code = PROT) g/dL 6.4-8.2 ALBUMIN (test code = ALB) g/dL 3.4-5.0 CALCIUM (test code = CA) 8.3 mg/dL 8.0-10.5 N BILIRUBIN TOTAL (test code = BILT) MG/DL <1.5 SGOT/AST (test code = AST) IUnit/L 15-37 SGPT/ALT (test code = ALT) IUnit/L 15-65 ALKALINE PHOSPHATASE TOTAL (test code = ALKP) IUnit/L 20-125 HCG SERUM [id number] 18:17:00* Test Item Value Reference Range Interpretation Comments HCG SERUM QUAL (test code = HCGQL) NEGATIVE COMPREHENSIVE METABOLIC [id number] 18:17:00* Test Item Value Reference Range Interpretation Comments SODIUM (test code = NA) 138 mEq/L 134-147 N POTASSIUM (test code = K) 3.9 mEq/L 3.4-5.0 N CHLORIDE (test code = CL) 110 mEq/L 100-108 H CARBON DIOXIDE (test code = CO2) 22 mEq/L 21-33 N ANION GAP (test code = GAP) 10 0-20 N GLUCOSE (test code = GLU) 84 mg/dL 70-110 N BLOOD UREA NITROGEN (test code = BUN) 17 mg/dL 7-18 N GLOMERULAR FILTRATION RATE (test code = GFR) 110-120 CREATININE (test code = CREAT) mg/dL 0.6-1.3 TOTAL PROTEIN (test code = PROT) g/dL 6.4-8.2 ALBUMIN (test code = ALB) g/dL 3.4-5.0 CALCIUM (test code = CA) 8.3 mg/dL 8.0-10.5 N BILIRUBIN TOTAL (test code = BILT) MG/DL <1.5 SGOT/AST (test code = AST) IUnit/L 15-37 SGPT/ALT (test code = ALT) IUnit/L 15-65 ALKALINE PHOSPHATASE TOTAL (test code = ALKP) IUnit/L 20-125 HCG SERUM [id number] 18:17:00* Test Item Value Reference Range Interpretation Comments HCG SERUM QUAL (test code = HCGQL) SERUM NEGATIVE NEGATIVE SURGICAL [id number] 16:04:00 RUN DATE: 04/09/20 [facility] *LIVE* PAGE 1 RUN TIME: 1604 Specimen Inqui ry RUN USER: INTERFACE PATIENT: DENISE ROSA ACCT #: [id number] LOC: [facility] U #: [id number] AGE/SX: 20/F ROOM: [facility] RE04/04/20REG DR: Me isaiah Saini : [birth year] BED: 1 DIS: 04/06/20 STATUS: DIS IN TLOC: SPEC #: [id number] RECD: 04/05/20 STATUS: EDINSON REQ #: [id number] DAPHNE: 04/05/[address]: Me isaiah Saini DO ENTERED: 04/08/20 SP TYPE: SURG SPEC OTHR DR: Christiano R ladanerrDonna Sapp MD, Lauren C MD Tran, Lynn MDORDERED: GM LEVEL 4 CODES: [id number] - PLACENTA, NOS COPIES TO: Self Ref erred Solange Saini DO 17 [place], [place] [address] Donna Waite MD [address] [facility] [address] [place] [address] [id number] Sarah Trejo MD #17 [place], [place] [id number] Megan Henry MD 7[address] [facility] [address] [place] [address] [id number] PROCEDURES: GM LEVEL 4 (Incomplete) TISSUES: 1. PLACENTA, NOS - Placenta, 3rd trimester FINAL DIAGNOSIS P asif, 3rd trimester: Michel placenta (460 g, 75th percentile for gestat ional age). CONTINUED ON NEXT PAGE ---- --------RUN DATE: 04/09/20 [facility] *LIVE* PAGE 2 RUN TIME: 1604 Specimen Inquiry RUN USER: INTERFACE SPEC #: [id number] PATIENT: DENISE ROSA #[id number] (Continued) GROSS AND MICROSCOPIC GROSS EXAMINATION: Received in formalin labeled placenta is a 460 g 15 x 15 x 2.2 cm placenta. The surface is bluegray with tortuous vessels on the surface. The maternal surface is intact with focal adherent hemorrhage. Th e centrally inserted 3 vessel umbilical cord measures 19 cm in length 1.3 cm i n diameter. The membranes are thin and translucent. The parenchyma is beefy red without identifiable lesions. SECTION CO DE: (A) Membranes (B) umbilical cord (C)-(E) placental parenchyma. MICROSCOPIC EXAM INATION: Sections of the umbilical cord reveal three vessels without si gnificant inflammation. The membranes are unremarkable. The fe carmen surface of the placenta does not show a significant inflammatory infiltrat e. Maturation is appropriate for gestational age. The underlying maternal deci abdirashid beneath the placenta contains a mixed inflammatory infiltrate. POST-OP DIAGNOSIS , 34.2/7 EGA, premature rupture of membranes, spontaneous vaginal delivery PRE-OP DIAGNOSIS , 34.2/7 EGA, premature rupture of membranes----- ------- Signed SIGNATURE ON Isabella Muhammad 04/09 1604 E ND OF REPORT CBC W/AUTO [id number] 07:15:00* Test Item Value Reference Range Interpretation Comments WHITE BLOOD CELL (test code = WBC) 14.40 x10 3/uL 4.5-11.0 H RED BLOOD CELL (test code = RBC) 3.20 x10 6/uL 3.54-5.02 L HEMOGLOBIN (test code = HGB) 8.0 g/dL 11.0-15.0 L HEMATOCRIT (test code = HCT) 26.2 % 33.0-45.0 L MEAN CELL VOLUME (test code = MCV) 81.9 fL 81.0-99.0 N MEAN CELL HGB (test code = MCH) 25.0 pg 27.0-33.0 L MEAN CELL HGB CONCETRATION (test code = MCHC) 30.5 g/dL 33.0-37. 0 L RED CELL DISTRIBUTION WIDTH CV (test code = RDW) 14.7 % 11.5- 14.5 H RED CELL DISTRIBUTION WIDTH SD (test code = RDW-SD) 43.5 fL 37 .0-54.0 N PLATELET COUNT (test code = PLT) 172 x10 3/uL 150-400 N MEAN PLATELET VOLUME (test code = MPV) 12.5 fL 7.0-9.0 H NEUTROPHIL % (test code = NT%) 78.0 % 56.0-77.0 H IMMATURE GRANULOCYTE % (test code = IG%) 0.6 % 0.0-2.0 N LYMPHOCYTE % (test code = LY%) 14.9 % 14.0-32.0 N MONOCYTE % (test code = MO%) 6.3 % 4.8-9.0 N EOSINOPHIL % (test code = EO%) 0.1 % 0.3-3.7 L BASOPHIL % (test code = BA%) 0.1 % 0.0-2.0 N NUCLEATED RBC % (test code = NRBC%) 0.0 % 0-0 N NEUTROPHIL # (test code = NT#) 11.24 x10 3/uL 2.0-7.6 H IMMATURE GRANULOCYTE # (test code = IG#) 0.09 x10 3/uL 0.00-0.03 H LYMPHOCYTE # (test code = LY#) 2.14 x10 3/uL 1.0-3.8 N MONOCYTE # (test code = MO#) 0.90 x10 3/uL 0.1-0.8 H EOSINOPHIL # (test code = EO#) 0.01 x10 3/uL 0.0-0.2 N BASOPHIL # (test code = BA#) 0.02 x10 3/uL 0.0-0.2 N NUCLEATED RBC # (test code = NRBC#) 0.00 x10 3/uL 0.0-0.1 N MANUAL DIFF REQUIRED (test code = MDIFF) NO CORD ARTERIAL BLOOD [id number] 17:33:00* Test Item Value Reference Range Interpretation Comments CORD BLOOD PH (test code = PH/C) 7.26 7.18-7.38 N CORD BLOOD PCO2 (test code = PCO2/C) 46 mmHg 32-66 N CORD BLOOD PO2 (test code = PO2/C) 23 mmHg 6-30 N CORD BLOOD HCO3 (test code = HCO3/C) 21 mmol/L 17-27 N BASE EXCESS CORD (test code = LORA/C) -6.0 mmol/L -8.0-0.0 N O2 SATURATION (test code = O2S/C) 32 % 72-77 L CORD VENOUS BLOOD [id number] 17:33:00* Test Item Value Reference Range Interpretation Comments CORD VENOUS PH (test code = PHCV) 7.34 7.25-7.45 N CORD VENOUS PCO2 (test code = PCO2CV) 33 mmHg 27-49 N CORD VENOUS PO2 (test code = PO2CV) 39 mmHg 17-41 N CORD VENOUS HCO3 (test code = HCO3CV) 17.7 MMOL/L 12-28 N CORD VENOUS BASE EXCESS (test code = BEXCV) -8.0 mmol/L -8.0-0.00 N CORD VENOUS 02 SAT (test code = O2SCV) 71 % RAPID PLASMA [id number] 15:15:00* Test Item Value Reference Range Interpretation Comments RAPID PLASMA REAGIN (test code = RPR) NONREACTIVE NONREACTIVE AG HEPATITIS B [id number] 15:15:00* Test Item Value Reference Range Interpretation Comments AG HEPATITIS B SURFACE (test code = HBSAG) NON REACTIVE INDEX NonRe active AB HIV 1 15:15:00* Test Item Value Reference Range Interpretation Comments AB HIV 1 2 (test code = BXK33QC) NONREACTIVE INDEX NONREACTIVE RAPID PLASMA [id number] 11:17:00* Test Item Value Reference Range Interpretation Comments RAPID PLASMA REAGIN (test code = RPR) NONREACTIVE NONREACTIVE AG HEPATITIS B [id number] 11:17:00* Test Item Value Reference Range Interpretation Comments AG HEPATITIS B SURFACE (test code = HBSAG) NON REACTIVE INDEX NonRe active AB HIV 1 11:17:00* Test Item Value Reference Range Interpretation Comments AB HIV 1 2 (test code = BBC77SF) INDEX NONREACTIVE RAPID PLASMA [id number] 07:29:00* Test Item Value Reference Range Interpretation Comments RAPID PLASMA REAGIN (test code = RPR) NONREACTIVE AG HEPATITIS B [id number] 07:29:00* Test Item Value Reference Range Interpretation Comments AG HEPATITIS B SURFACE (test code = HBSAG) NON REACTIVE INDEX NonRe active AB HIV 1 07:29:00* Test Item Value Reference Range Interpretation Comments AB HIV 1 2 (test code = AZP92QI) INDEX NONREACTIVE - US [id number] 06:47:00 Name: DENISE ROSA [facility] [place], [place] : 2000 Age/S: 20 / F [address] [place] [address] Unit #: [id number] Loc: [facility] [place] [address] Phys: Solange Saini DO Acct: [id number] Dis Date: Status: ADM IN PHONE #: [phone] Exam Date: 04/04/2020 0639 FAX #: [phone] Reason: EST. WEIGHT AND PRESENTATION EXAMS: CPT CODE: [id number] [place] LTD 10823 EXAM: US, US ltd: 04/04/2020, 0608 hours HISTORY: Estimated weight and presentation. LOF TECHNIQUE: Sonographic evaluation is performed of the pelvis via transabdominal approach using grayscale, color flow and Doppler imaging when appropriate. COMPARISON: None available. FINDINGS: The examination shows a single fetus in cephalic presentation. Normal cardiac activity is noted at 150 per second. The amount of amniotic fluid is normal. RICARDO is 8.35 cm with largest pocket measuring 3.47 cm. The placenta is anterior, grade 0. There is no evidence of previa. The following measurements are obtained: 1. BPD - 8.44 cm : Avg = 34 weeks 0 day 2. HEAD CIRCUMFEREN CE - 29.89 cm : Avg = 33 weeks 1 day 3. ABDOMINAL CIRCUMFERENCE - 30.75 cm : Avg = 34 weeks 5 days 4. FEMUR LENGTH - 6.13 cm: Avg = 31 weeks 6 days 5. EFW: (AC.BPD, FL.HC)- [place] - 2248 g+/- 33 7.19 g EFW ([place])-GP 26.8 % FL/AC: 19.93 (20.00-- 24.00) FL/BPD: 72.64 (71.0--87.0) FL/HC: 20.50 (19.69--21.63) HC/AC: 0.97 (0.95--1.11) S/D ratio : 2.7 The measure ments correspond with an sonographic EGA of 33 weeks 3 days and an sonogra phic ZUNILDA of 05/20/2020 plus or minus one standard deviation. The LMP estimated gestational age is 34 weeks 2 days . ZUNILDA by LMP is 05/14/2020. There is difference of 6 between LMP estimated gestational age and so nographic gestational age. PAGE 1 Signed Repo rt (CONTINUED) Name: DENISE ROSA [facility] [place] : 2000 Age/S: 20 / F [address] [facility] Unit #: [id number] Loc: [place], [place] [address] Phys: Solange Saini DO Acct: [id number] Dis Date: Status: ADM IN PHONE #: [phone] Exam Date: 04/04/2020 0639 FAX #: [phone] Reason: EST. WEIGHT AND PRESENTATION EXAMS: CPT CODE: [id number] [place] LTD 93180 <Continued> Limited study secondary to the cuff amniotic fluid. Cervical length is 4.85 cm. IMPRESSION: Single live fetus in cephalic presentation. 2. Sonographic EGA of 33 weeks 3 days and an sonographic ZUNILDA of 05/20/2020 +/- one standard deviation. SL: CARLOTA at 0647 Reported and signed by: Ruslan Singh M.D. CC: Solange Saini DO; Donna Waite MD; Sarah Trejo MD Technologist: Janis Allen RDMS(AB)(OB) Trnscb Date/Time: 04/04/2020 (47) [email or web address] Orig Print D/T: S: 04/04/2020 (0651) Probe: PAGE 2 Signed Report CBC W/AUTO [id number] 06:39:00* Test Item Value Reference Range Interpretation Comments WHITE BLOOD CELL (test code = WBC) 8.52 x10 3/uL 4.5-11.0 N RED BLOOD CELL (test code = RBC) 3.54 x10 6/uL 3.54-5.02 N HEMOGLOBIN (test code = HGB) 9.1 g/dL 11.0-15.0 L HEMATOCRIT (test code = HCT) 28.5 % 33.0-45.0 L MEAN CELL VOLUME (test code = MCV) 80.5 fL 81.0-99.0 L MEAN CELL HGB (test code = MCH) 25.7 pg 27.0-33.0 L MEAN CELL HGB CONCETRATION (test code = MCHC) 31.9 g/dL 33.0-37. 0 L RED CELL DISTRIBUTION WIDTH CV (test code = RDW) 14.6 % 11.5- 14.5 H RED CELL DISTRIBUTION WIDTH SD (test code = RDW-SD) 42.8 fL 37 .0-54.0 N PLATELET COUNT (test code = PLT) 186 x10 3/uL 150-400 N MEAN PLATELET VOLUME (test code = MPV) 11.9 fL 7.0-9.0 H NEUTROPHIL % (test code = NT%) 72.7 % 56.0-77.0 N IMMATURE GRANULOCYTE % (test code = IG%) 0.6 % 0.0-2.0 N LYMPHOCYTE % (test code = LY%) 18.8 % 14.0-32.0 N MONOCYTE % (test code = MO%) 6.2 % 4.8-9.0 N EOSINOPHIL % (test code = EO%) 1.3 % 0.3-3.7 N BASOPHIL % (test code = BA%) 0.4 % 0.0-2.0 N NUCLEATED RBC % (test code = NRBC%) 0.0 % 0-0 N NEUTROPHIL # (test code = NT#) 6.20 x10 3/uL 2.0-7.6 N IMMATURE GRANULOCYTE # (test code = IG#) 0.05 x10 3/uL 0.00-0.03 H LYMPHOCYTE # (test code = LY#) 1.60 x10 3/uL 1.0-3.8 N MONOCYTE # (test code = MO#) 0.53 x10 3/uL 0.1-0.8 N EOSINOPHIL # (test code = EO#) 0.11 x10 3/uL 0.0-0.2 N BASOPHIL # (test code = BA#) 0.03 x10 3/uL 0.0-0.2 N NUCLEATED RBC # (test code = NRBC#) 0.00 x10 3/uL 0.0-0.1 N MANUAL DIFF REQUIRED (test code = MDIFF) NO AMNISURE (ROM) [id number] 05:57:00* Test Item Value Reference Range Interpretation Comments AMNISURE (ROM) TEST (test code = AMNI) POSITIVE NEGATIVE A BLOOD UREA [id number] 19:15:00* Test Item Value Reference Range Interpretation Comments BLOOD UREA NITROGEN (test code = BUN) 6 mg/dL 7-18 L [id number] 19:15:00* Test Item Value Reference Range Interpretation Comments CREATININE (test code = CREAT) 0.5 mg/dL 0.6-1.3 L BLOOD UREA [id number] 19:11:00* Test Item Value Reference Range Interpretation Comments BLOOD UREA NITROGEN (test code = BUN) 6 mg/dL 7-18 L [id number] 19:11:00* Test Item Value Reference Range Interpretation Comments CREATININE (test code = CREAT) mg/dL 0.6-1.3 URINALYSIS [id number] 18:35:00* Test Item Value Reference Range Interpretation Comments UA COLOR (test code = COLU) YELLOW YEL/STRAW UA APPEARANCE (test code = APPU) CLEAR CLEAR UA GLUCOSE DIPSTICK (test code = DGLUU) NEGATIVE NEGATIVE UA BILIRUBIN DIPSTICK (test code = BILU) NEGATIVE NEGATIVE UA KETONE DIPSTICK (test code = KETU) NEGATIVE NEGATIVE UA SPECIFIC GRAVITY (test code = SGU) 1.023 1.005-1.030 N UA BLOOD DIPSTICK (test code = IDANIA) NEGATIVE NEGATIVE UA PH DIPSTICK (test code = DINAH) 6.0 5.0-7.0 N UA PROTEIN DIPSTICK (test code = PROU) NEGATIVE NEGATIVE UA UROBILINIOGEN DIPSTICK (test code = URO) 0.2 mg/dL 0.2-1.0 UA NITRITE DIPSTICK (test code = ANGELICA) NEGATIVE NEGATIVE UA LEUKOCYTE ESTERASE DIPSTICK (test code = LEUU) TRACE NEGA TIVE A UA RBC (test code = RBCU) 0-3 RBC/HPF 0-3 UA WBC NO REFLEX (test code = WBCUCL) 4-9 WBC/HPF 0-3 A UA BACTERIA (test code = BACU) TRACE /HPF NONE SEEN UA SQUAMOUS CELLS (test code = SQU) 0-5 /HPF NONE SEEN UA MUCUS (test code = MUCU) 1+ /LPF NONE SEEN CT, [id number] 14:13:00FINAL REPORT ABDOMINAL AND PELVIS CT DATED 08/29/2019 CLINICAL INFORMATION: RLQ abdominal pain, appendicitis suspected (Age > 14y)r/o appendicitis TECHNIQUE: Axial images of the abdomen [...] is present. IMPRESSION: 1. Status post left nephrectomy.2. Otherwise unremarkable CT of the abdomen and pelvis. Signed: Georgiana Chin MDReport Verified Date/Time: 11/2018 14:13:22 Reading Location: [facility] C0[facility] Consult Reading Room Electro nically signed by: GEORGIANA CHIN M.D. on 08/29/2019 02:[address] abdomen/pelvis without iv [id number] 14:13:00Interface, External Ris In - 08/29/2019 2:15 PM CDTFINAL REPORT ABDOMINAL AND PELVIS CT DATED 08/29/2019 CLINICAL INFORMATION: RLQ abdominal pain, appendicitis suspected (Age > 14y)r/o appendicitis TECHNIQUE: Axial images of the abdomen [...] is present. IMPRESSION: 1. Status post left nephrectomy.2. Otherwise unremarkable CT of the abdomen and pelvis. Signed: Georgiana Chin MDReport Verified Date/Time: 08/29/2019 14:13:22 Reading Location: [facility] C013 Consult Reading Room [facility] Metabolic Panel 2019-08-29 11:43:00* Test Item Value Reference Range Interpretation Comments Sodium (test code = 2951-2) 137 meq/L 135-148 Potassium (test code = 2823-3) 3.8 meq/L 3.6-5.5 Chloride (test code = 2075-0) 104 meq/L 98-106 CO2 (test code = 8-9) 24 meq/L 24-32 BUN (test code = 3094-0) 10 mg/dL 10-26 Creatinine (test code = 2160-0) 0.63 mg/dL 0.5-1.2 Glucose (test code = 2345-7) 94 mg/dL 70-110 Calcium (test code = 58621-3) 8.9 mg/dL 8.5-10.5 EGFR (test code = 05244-7) I NSUFFICIENT CLINICAL DATA TO CALCULATE ESTIMATED GFR. [facility] METABOLIC [id number] 11:43:00* Test Item Value Reference Range Interpretation Comments SODIUM (BEAKER) (test code = 381) 137 meq/L 135-148 POTASSIUM (BEAKER) (test code = 379) 3.8 meq/L 3.6-5.5 CHLORIDE (BEAKER) (test code = 382) 104 meq/L 98-106 CO2 (BEAKER) (test code = 355) 24 meq/L 24-32 BLOOD UREA NITROGEN (BEAKER) (test code = 354) 10 mg/dL 10-26 CREATININE (BEAKER) (test code = 358) 0.63 mg/dL 0.50-1.20 GLUCOSE RANDOM (BEAKER) (test code = 652) 94 mg/dL 70-110 CALCIUM (BEAKER) (test code = 697) 8.9 mg/dL 8.5-10.5 EGFR (BEAKER) (test code = 1092) INSUFFICIENT CLINICAL DATA TO CALCULATE ESTIMATED GFR. Hepatic function [id number] 11:42:00* Test Item Value Reference Range Interpretation Comments Protein, Total (test code = 2885-2) 7.3 6.0- 8.5 gm/dL Albumin (test code = 01225-2) 4.1 g/dL 3.5-5 Total Bilirubin (test code = 1975-2) 0.9 mg/dL 0.1-1.2 Bilirubin, Direct (test code = 1968-7) 0.3 mg/dL 0-0.4 Alkaline Phosphatase (test code = 6768-6) 124 U/L 30-115 H AST (test code = 1920-8) 28 U/L 5-40 ALT (test code = 1742-6) 39 U/L 5-50 Lab Interpretation (test code = 32098-4) [facility]normal [facility] 11:42:00* Test Item Value Reference Range Interpretation Comments Lipase (test code = 3040-3) 35 U/L 40-240 L Lab Interpretation (test code = 23470-5) Abnormal [facility] Center[facility]AT[facility] FUN[facility] [id number] 11:42:00* Test Item Value Reference Range Interpretation Comments TOTAL PROTEIN (BEAKER) (test code = 770) 7.3 gm/dL 6.0-8.5 ALBUMIN (BEAKER) (test code = 1145) 4.1 g/dL 3.5-5.0 BILIRUBIN TOTAL (BEAKER) (test code = 377) 0.9 mg/dL 0.1-1.2 BILIRUBIN DIRECT (BEAKER) (test code = 706) 0.3 mg/dL 0.0-0.4 ALKALINE PHOSPHATASE (BEAKER) (test code = 346) 124 U/L 30-115 H AST (SGOT) (BEAKER) (test code = 353) 28 U/L 5-40 ALT (SGPT) (BEAKER) (test code = 347) 39 U/L 5-50 [id number] 11:42:00* Test Item Value Reference Range Interpretation Comments LIPASE (BEAKER) (test code = 749) 35 U/L 40-240 L Urinalysis w/[id number] 11:33:00* Test Item Value Reference Range Interpretation Comments Color, UA (test code = 5778-6) Yellow Clarity, UA (test code = 5767-9) Slightly Hazy Specific [place], UA (test code = 5811-5) 1.015 1.001-1.035 pH, UA (test code = 5803-2) 7.0 5.0-8.0 Protein, UA (test code = 25562-2) Negative Negative Glucose, UA (test code = 365) Negative Negative Ketones, UA (test code = 2514-8) Negative Negative Bilirubin, UA (test code = 10001-6) Negative Negative Blood, UA (test code = 72265-0) Negative Negative Nitrite, UA (test code = 5802-4) Negative Negative Leukocytes, UA (test code = 5799-2) Moderate Negative A Urobilinogen, UA (test code = 76510-4) 0.2 mg/dL 0.2-1 Bacteria, UA (test code = 22450-3) Moderate RBC, UA (test code = 799-7) None Seen /HPF WBC, UA (test code = 10545-7) 20-50 /HPF SQUAMOUS EPITHELIAL (test code = 50419-8) 5-10 /HPF Clue cells seen. Specimen Source (test code = 2795) Lab Interpretation (test code = 55506-6) [facility]normal [facility]/ [id number] 11:33:00* Test Item Value Reference Range Interpretation Comments COLOR (BEAKER) (test code = 470) Yellow CLARITY (BEAKER) (test code = 469) Slightly Hazy SPECIFIC GRAVITY UA (BEAKER) (test code = 468) 1.015 1.001-1 .035 PH UA (BEAKER) (test code = 467) 7.0 5.0-8.0 PROTEIN UA (BEAKER) (test code = 464) Negative Negative GLUCOSE UA (BEAKER) (test code = 365) Negative Negative KETONES UA (BEAKER) (test code = 371) Negative Negative BILIRUBIN UA (BEAKER) (test code = 462) Negative Negative BLOOD UA (BEAKER) (test code = 461) Negative Negative NITRITE UA (BEAKER) (test code = 465) Negative Negative LEUKOCYTE ESTERASE UA (BEAKER) (test code = 466) Moderate Negat alexander A UROBILINOGEN UA (BEAKER) (test code = 463) 0.2 mg/dL 0.2-1.0 BACTERIA (BEAKER) (test code = 517) Moderate RBC UA-MANUAL (BEAKER) (test code = 1659) None Seen /HPF WBC UA-MANUAL (BEAKER) (test code = 1661) 20-50 /HPF SQUAMOUS EPITHELIAL MANUAL (BEAKER) (test code = 1663) 5-10 /HPF Clue cells seen. SOURCE(BEAKER) (test code = 2795) CBC with platelet count + automated [id number] 11:32:00* Test Item Value Reference Range Interpretation Comments WBC (test code = 6690-2) 11.8 4.0- 10.0 K/L H RBC (test code = 789-8) 4.49 4.00- 5.00 M/L MCHC (test code = 786-4) 32.6 32.0- 36.0 GM/DL Hematocrit (test code = 4544-3) 37.4 % 36-45 MCV (test code = 787-2) 83.1 fL 82-99 MCH (test code = 785-6) 27.1 pg 27-33 RDW (test code = 788-0) 16.5 % 10.3-14.2 H Platelets (test code = 777-3) 188 150- 430 K/CU MM MPV (test code = 54141-1) 9.6 fL 6.5-10.5 % Neutros (test code = 429) 83 % % Lymphs (test code = 430) 8 % % Monos (test code = 431) 7 % % Eos (test code = 432) 1 % % Baso (test code = 437) 1 % # Neutros (test code = 670) 9.83 1.80- 8.00 K/L H # Lymphs (test code = 414) 0.92 1.48- 4.50 K/L L # Monos (test code = 415) 0.81 0.00- 1.30 K/L # Eos (test code = 416) 0.17 0.00- 0.50 K/L # Baso (test code = 417) 0.07 0.00- 0.20 K/L Lab Interpretation (test code = 54563-0) Abnormal [facility]PLT COUNT & AUTO [id number] 11:32:00* Test Item Value Reference Range Interpretation Comments WHITE BLOOD CELL COUNT (BEAKER) (test code = 775) 11.8 K/ L 4.0- 10.0 H RED BLOOD CELL COUNT (BEAKER) (test code = 761) 4.49 M/ L 4.00-5 .00 HEMOGLOBIN (BEAKER) (test code = 410) 12.2 GM/DL 12.0-15.0 HEMATOCRIT (BEAKER) (test code = 411) 37.4 % 36.0-45.0 MEAN CORPUSCULAR VOLUME (BEAKER) (test code = 753) 83.1 fL 82. 0-99.0 MEAN CORPUSCULAR HEMOGLOBIN (BEAKER) (test code = 751) 27.1 pg 27.0-33.0 MEAN CORPUSCULAR HEMOGLOBIN CONC (BEAKER) (test code = 752) 32.6 GM/DL 32.0-36.0 RED CELL DISTRIBUTION WIDTH (BEAKER) (test code = 412) 16.5 % 10.3-14.2 H PLATELET COUNT (BEAKER) (test code = 756) 188 K/CU MM 150-430 MEAN PLATELET VOLUME (BEAKER) (test code = 754) 9.6 fL 6.5-10 .5 NEUTROPHILS RELATIVE PERCENT (BEAKER) (test code = 429) 83 % LYMPHOCYTES RELATIVE PERCENT (BEAKER) (test code = 430) 8 % MONOCYTES RELATIVE PERCENT (BEAKER) (test code = 431) 7 % EOSINOPHILS RELATIVE PERCENT (BEAKER) (test code = 432) 1 % BASOPHILS RELATIVE PERCENT (BEAKER) (test code = 437) 1 % NEUTROPHILS ABSOLUTE COUNT (BEAKER) (test code = 670) 9.83 K/ L 1.80-8.00 H LYMPHOCYTES ABSOLUTE COUNT (BEAKER) (test code = 414) 0.92 K/ L 1.48-4.50 L MONOCYTES ABSOLUTE COUNT (BEAKER) (test code = 415) 0.81 K/ L 0. 00-1.30 EOSINOPHILS ABSOLUTE COUNT (BEAKER) (test code = 416) 0.17 K/ L 0.00-0.50 BASOPHILS ABSOLUTE COUNT (BEAKER) (test code = 417) 0.07 K/ L 0. 00-0.20 Screen, [id number] 11:28:00* Test Item Value Reference Range Interpretation Comments Preg Test, Ur (test code = 2112-1) Negative [facility], [id number] 11:28:00* Test Item Value Reference Range Interpretation Comments TEST URINE (BEAKER) (test code = 583) Negative FOOT 3 VIEW LT - [id number] 01:22:00 [place] [address] Patient Name: DENISE ROSA MR #: [id number] : 2000 Age/Sex: 18/F Req #: [id number] Adm Physician: Ordered by: NESHA CONNELLY MD Report #: [id number] Location: [facility] Room/Bed: Procedure: HOPD/FOOT 3 VIEW LT - HOPD Exam Date: 11/30/18 Exam Time: 0004 REPORT STATUS: S igned ANKLE 3VIEW LT - HOPD, FOOT 3 VIEW LT - HOPD Comparison: None Cl inical history: Pain Findings: Left ankle and foot: Mild soft tissue swel ling about the lateral ankle. Subtle linear lucency along the distal fibula as seen on oblique view. Ankle mortise is intact. Impression: Suspected n ondisplaced fracture of the distal fibula. Correlate with site of pain and con clinical social work aide short-term follow-up radiographs in 1-2 weeks. Signed by: Dr Quique navarro MD on 11/30/2018 1:26 AM Dictated By: QUIQUE LEIGH MD Electronic ally Signed By: QUIQUE LEIGH MD on 11/30/18125 Transcribed By: BRIAN on 11/30/18125 COPY TO: NESHA CONNELLY MD ANKLE 3VIEW LT - HOPD 2018-11-30 01:22:00 [place] [address] Patient Name: DENISE ROSA MR #: [id number] : 2000 Age/Sex: 18/F Req #: [id number] Adm Physician: Ordered by: NESHA CONNELLY MD Report #: [id number] Location: [facility] Room/Bed: Procedure: HOPD/ANKLE 3VIEW LT - HOPD Exam Date: 11/30/18 Exam Time: 3 REPORT STATUS: S igned ANKLE 3VIEW LT - HOPD, FOOT 3 VIEW LT - HOPD Comparison: None Cl inical history: Pain Findings: Left ankle and foot: Mild soft tissue swel ling about the lateral ankle. Subtle linear lucency along the distal fibula as seen on oblique view. Ankle mortise is intact. Impression: Suspected n ondisplaced fracture of the distal fibula. Correlate with site of pain and con clinical social work aide short-term follow-up radiographs in 1-2 weeks. Signed by: Dr Quique navarro MD on 11/30/2018 1:26 AM Dictated By: QUIQUE LEIGH MD Electronic ally Signed By: QUIQUE LEIGH MD on 11/30/18125 Transcribed By: BRIAN on 11/30/18125 COPY TO: NESHA CONNELLY MD Influenza Virus Types A,B [id number] 14:04:00* Test Item Value Reference Range Interpretation Comments Influenza Virus Types A,B Antigen (test code = 38715-3) POSITIVE FLU B NEGATIVE H Results called to sofy whitley at 1401 on 12/23/17 by Adali Salomon. LILY wilkes faxed to in infection control at 1401 on 12/23/17 by Adali Salomon.[facility] Streptococcus [id number] 14:04:00* Test Item Value Reference Range Interpretation Comments Group A Streptococcus Screen (test code = 59699-6) NEGATIVE NEG ATIVE [facility] StationInfluenza Virus Types A,B Antigen 2017-12-23 14:04:00* Test Item Value Reference Range Interpretation Comments Influenza Virus Types A,B Antigen (test code = 62572-9) POSITIVE FLU B NEGATIVE H Results called to sofy whitley at 1401 on 12/23/17 by Adali Salomon. LILY wilkes faxed to in infection control at 1401 on 12/23/17 by Adali Salomon.[facility] Streptococcus [id number] 14:04:00* Test Item Value Reference Range Interpretation Comments Group A Streptococcus Screen (test code = 77478-5) NEGATIVE NEG ATIVE [facility] [place] [address] Patient Name: DENISE ROSA MR #: [id number] : 2000 Age/Sex: 17/F Req #: [id number] Adm Physician: Ordered by: KASANDRA MCGRAW MD Report #: [id number] Location: ER Room/Bed: Procedure: [id number] DX/CHEST 2 VIEWS Exam Date : 01/04/18 Exam Time: 1730 REPORT STATUS: Ely d EXAMINATION: CHEST 2 VIEWS INDICATION: COMPAR AGUSTIN: 12/23/2017 FINDINGS: PA and lateral views TUBES and LINES: None. LUNGS: Lungs are well inflated. Right upper lobe opacification. PLEURA: No pleural effusion or pneumothorax. HEART AND MEDIASTIN UM: The cardiomediastinal silhouette is unremarkable. BONES AND SOFT T ISSUES: No acute osseous lesion. Soft tissues are unremarkable. UPPER A BDOMEN: No free air under the diaphragm. IMPRESSION: Right upper lob e pneumonia. Signed by: Dr. Jose Miguel Oreilly MD on 01/04/2018 5:53 PM Dictated By: JOSE MIGUEL OREILLY MD Electronically Signed By: JOSE MIGUEL OREILLY MD on 0 01/04/181752 Transcribed By: BRIAN on 01/04/181752 COPY TO: DAVID MCGRAW MD CHEST 2 VIEWS [place] [address] Patient Name: DENISE ROSA MR #: [id number] : 2000 Age/Sex: 17/F Req #: [id number] Adm Physician: Ordered by: MANUELA SENIOR LOGISTICS OFFICER Report #: [id number] Location: ER Room/Bed: Procedure: [id number] DX/CHEST 2 VIEWS Exam Bernardo e: 12/23/17 Exam Time: 1211 REPORT STATUS: Sign ed PROCEDURE: Frontal and lateral views of the chest. COMPARISON: Non e. INDICATIONS: CHILLS, FEVER, COUGH FOR 2 DAYS FINDINGS: Li yaritza/tubes: None. Lungs: The lungs are well inflated and clear. There is no evidence of pneumonia or pulmonary edema. Pleura: There is no pleur al effusion or pneumothorax. Heart and mediastinum: The heart and the med iastinum are normal. Bones: No acute bony abnormality. Upper abdom en: Multiple surgical clips noted adjacent to an upper lumbar vertebral body and a clip overlying the left upper quadrant. No free air under the diaphragm . IMPRESSION: No acute cardiopulmonary disease. Dictated by: Senthil Joel M.D. on 12/23/2017 at 12:34 Electronically approved by: Senthil Joel M.D. on 12/23/2017 at 12:34 Dictated By: JACKY JOEL MD 1234 Transcri bed By: LINDA on 12/23/17 1234 COPY TO: MANUELA SENIOR NP
--- NOTE | 2020-07-13 17:23 | Emergency Department Note ---
History of Present Illnes History of Present Illness Chief Complaint: Headache History of Present Illness This is a 20 year old female Chief Complaint Comment HEADACHE SEVERAL WKS NO HX MIGRAINES. AAOX4. AMBULATORY. . Historian: Patient Arrival Mode: Car Onset (how long ago): day(s) (2) Location: HEADACHE Quality: DULL Radiation: Denies non-radiation, Denies back, Denies neck, Denies extremity, Denies abdomen, Denies periumbilical, Denies flank, Denies proximal, Denies distal, Denies other Severity: moderate Onset quality: gradual Duration (how long): day(s) (2) Timing of current episode: intermittent Progression: waxing and waning Chronicity: new Context: Denies recent illness, Denies recent surgery, Denies recent immobilization, Denies recent travel, Denies trauma/injury, Denies new medications, Denies hx of DVT/PE, Denies non-compliance w/ medications, Denies other Relieving factors: none Exacerbating factors: none Associated symptoms: Reports headaches; Denies denies other symptoms, Denies confusion, Denies chest pain, Denies cough, Denies diaphoresis, Denies fever/chills, Denies loss of appetite, Denies malaise, Denies nausea/vomiting, Denies rash, Denies seizure, Denies shortness of breath, Denies syncope, Denies weakness, Denies other Treatments prior to arrival: none Past Medical/Family History Physician Review I have reviewed the patient's past medical and family history. Any updates have been documented here. Past Medical History Recent Fever: No Clinical Suspicion of Infectio: No New/Unexplained Change in Ment: No Past Medical History: None Other Medical History: anxiety Other Surgery: L-KIDNEY REMOVED Social History Smoking Cessation: Unknown if ever smoked Counseling Performed: No Alcohol Use: None Any Illegal Drug Use: No Other Last Tetanus: UNK Any Pre-Existing Lines (PICC,: No Review of Systems Review of Systems Constitutional: Reports no symptoms EENTM: Reports no symptoms Cardiovascular: Reports no symptoms Respiratory: Reports no symptoms Gastrointestinal: Reports no symptoms Genitourinary: Reports no symptoms Musculoskeletal: Reports no symptoms Integumentary: Reports no symptoms Neurological: Reports as per HPI, Reports headache Psychological: Reports no symptoms Endocrine: Reports no symptoms Hematological/Lymphatic: Reports no symptoms Physical Exam Related Data Allergies: Coded Allergies: No Known Allergies (Unverified , 12/23/17) Triage Vital Signs Vital Signs Date Time Temp Pulse Resp B/P (MAP) Pulse Ox O2 Delivery O2 Flow Rate FiO2 07/13/20 16:11 98.2 76 14 122/76 100 Room Air Vital signs reviewed: Yes Physical Exam CONSTITUTIONAL Constitutional: Present well-developed, Present well-nourished HENT HENT: Present normocephalic, Present atraumatic, Present oropharynx clear/moist, Present nose normal HENT L/R: Present left ext ear normal, Present right ext ear normal EYES Eyes: Reports PERRL, Reports conjunctivae normal NECK Neck: Present ROM normal PULMONARY Pulmonary: Present effort normal, Present breath sounds normal CARDIOVASCULAR Cardiovascular: Present regular rhythm, Present heart sounds normal, Present capillary refill normal, Present normal rate GASTROINTESTINAL Abdominal: Present soft, Present nontender, Present bowel sounds normal GENITOURINARY Genitourinary: Present exam deferred SKIN Skin: Present warm, Present dry MUSCULOSKELETAL Musculoskeletal: Present ROM normal NEUROLOGICAL Neurological: Present alert, Present oriented x 3, Present no gross motor or sensory deficits PSYCHOLOGICAL Psychological: Present mood/affect normal, Present judgement normal Results Imaging Imaging results reviewed: Yes Assessment & Plan Medical Decision Making MDM MIGRAIN BLEED Reassessment Reassessment BETTER Assessment & Plan Final Impression: (1) Headache Depart Disposition: HOME, SELF-CARE Last Vital Signs Date Time Temp Pulse Resp B/P (MAP) Pulse Ox O2 Delivery O2 Flow Rate FiO2 07/13/20 16:11 98.2 76 14 122/76 100 Room Air Home Meds Reported Medications Tramadol Hcl* (ULTRAM 50MG*) 50 Mg Tab, 50 MG PO QID, TAB 11/01/14 Sertraline Hcl (ZOLOFT) 50 Mg Tablet, 150 MG PO DAILY, #30 TAB 11/01/14 Medications in the ED Ketorolac Tromethamine 30 mg ONCE STAT IM ; Start 07/13/20 at 16:20; Stop 07/13/20 at 16:34; Status DC Ondansetron HCl 4 mg ONCE ONCE PO ; Start 07/13/20 at 16:30; Stop 07/13/20 at 16:34; Status DC JESSA CHAPPELL MD Jul 13, 2020 17:23
[2020-07-13] MEDS ORDERED: ONDANSETRON HCL 4 MG ORAL DISINTEGRATING TAB ONE (17:27)
== END 2020-07-13 17:43 | disposition home or self-care (01) ==
LOC: FSED 17:10
DX: R51 Headache (principal); F41.9 Anxiety disorder, unspecified
CPT/HCPCS: 70450; 99283; Q0162; J1885

== ENCOUNTER 2020-12-30 16:44 | Emergency (ER) | payer OTHER ==
[~2020-12-30] VITALS: Ht 165.1 cm; Wt 97.5 kg
[2020-12-30] MEDS ORDERED: ONDANSETRON HCL INJ 2MG/ML 2ML 2 MG/ML VIAL IV STA (17:25)
[2020-12-30] MEDS ORDERED: FAMOTIDINE 20 MG/2 ML VIAL IV STA (17:25)
[2020-12-30] MEDS ORDERED: SODIUM CHLORIDE 0.9% 1000ML 1,000 ML IV STA (17:25)
[2020-12-30] MEDS ORDERED: PANTOPRAZOLE SOD 40 MG TABEC PO ONE (17:30)
[2020-12-30] MEDS ORDERED: DONNATAL/LIDOCAINE/MAALOX 30 ML SUSP PO SCH (17:30)
[2020-12-30 18:22] LABS: BASOPHILS # (AUTO) 0.1 (0.0-0.1); BASOPHILS % 0.5 % (0.0-1.0); EOSINOPHILS # (AUTO) 0.3 (0.0-0.4); EOSINOPHILS % 3.6 % (0.0-6.0); HEMATOCRIT 37.1 % (34.2-44.1); LYMPHOCYTES # (AUTO) 2.9 (1.0-3.2); LYMPHOCYTES % 31.9 % (18.0-39.1); MEAN CORPUSCULAR HGB CONC 32.3 g/dL (31-35); MEAN CORPUSCULAR VOLUME 80.3 fL (81-99); MONOCYTES # (AUTO) 0.4 (0.2-0.8); MONOCYTES % 4.8 % (4.4-11.3); NEUTROPHILS # (AUTO) 5.4 (2.1-6.9); PLATELET COUNT 199 x10e3/uL (140-360); RED BLOOD COUNT 4.62 x10e6/uL (3.6-5.1); RED CELL DISTRIBUTION WIDTH 15.6 % (11.7-14.4)
[2020-12-30 18:36] LABS: ALANINE AMINOTRANSFERASE 30 IU/L (0-55); ALBUMIN 3.9 g/dL (3.5-5.0); ALBUMIN/GLOBULIN RATIO 1.1 (0.8-2.0); ALKALINE PHOSPHATASE 132 IU/L (40-150); ANION GAP 13.9 mmol/L (8-16); BLOOD UREA NITROGEN 10 mg/dL (7-26); BUN/CREATININE RATIO 13 (6-25); CALCIUM 8.4 mg/dL (8.4-10.2); CARBON DIOXIDE 22 mmol/L (22-29); CHLORIDE 106 mmol/L (98-107); CREATINE KINASE 125 IU/L (29-168); CREATININE, SERUM 0.76 mg/dL (0.57-1.11); EST GLOMERULAR FILTRATION RATE > 60 ML/MIN (60-); GLUCOSE 94 mg/dL (74-118); POTASSIUM 3.9 mmol/L (3.5-5.1); SODIUM 138 mmol/L (136-145)
[2020-12-30 18:36] LABS: CLARITY,URINE CLEAR (CLEAR); COLOR,URINE YELLOW (YELLOW); KETONES,URINE NEGATIVE (NEGATIVE); LEUKOCYTE ESTERASE ,URINE SMALL (NEGATIVE); NITRITE,URINE NEGATIVE (NEGATIVE); PROTEIN,URINE DIPSTICK NEGATIVE (NEGATIVE); URINE UROBILINOGEN 0.2 mg/dL (0.2 - 1)
[2020-12-30 18:41] LABS: LIPASE 11 U/L (8-78)
[2020-12-30 18:53] LABS: BACTERIA,URINE MODERATE /HPF; EPITHELIAL CELLS,URINE MANY /LPF
[2020-12-30] MEDS ORDERED: ZOFRAN4 MG SL (19:22)
[2020-12-30] MEDS ORDERED: FAMOTIDINE20 MG PO (19:22)
[2020-12-30] MEDS ORDERED: PANTOPRAZOLE SO40 MG PO (19:22)
[2020-12-30] MEDS ORDERED: MAALOX MAXIMUM355 ML PO (19:22)
== END 2020-12-30 19:51 | disposition home or self-care (01) ==
LOC: ER 16:55
DX: R10.13 Epigastric pain (principal); K29.70 Gastritis, unspecified, without bleeding; F41.9 Anxiety disorder, unspecified
CPT/HCPCS: 36415; 80053; 81001; 82550; 82553; 83690; 84484; 84702; 85025; 99283; J2405; J7030; S0164

== ENCOUNTER 2022-02-01 07:09 | Emergency (ER) | payer OTHER ==
[~2022-02-01] VITALS: Ht 165.1 cm; Wt 99.8 kg
[~2022-02-01 07:09] MED LIST changes: +FAMOTIDINE20 MG PO; +MAALOX MAXIMUM355 ML PO; +PANTOPRAZOLE SO40 MG PO; +ZOFRAN4 MG SL
[2022-02-01] MEDS ORDERED: ONDANSETRON HCL INJ 2MG/ML 2ML 2 MG/ML VIAL IV STA (08:02)
[2022-02-01] MEDS ORDERED: KETOROLAC TROMETHAMINE 30 MG/ML VIAL IV STA (08:02)
[2022-02-01] MEDS ORDERED: SODIUM CHLORIDE 0.9% 1000ML 1,000 ML IV SCH (08:15)
[2022-02-01] MEDS ORDERED: SODIUM CHLORIDE 0.9% 50ML 50 ML ONE (08:16)
[2022-02-01] MEDS ORDERED: IOPAMIDOL 370 MG/ML 200 ML INFUS..BTL INJ ONE (08:16)
[2022-02-01] MEDS ORDERED: ONDANSETRON HCL INJ 2MG/ML 2ML 2 MG/ML VIAL ONE (08:40)
[2022-02-01] MEDS ORDERED: SODIUM CHLORIDE 0.9% 1000ML 1,000 ML ONE (08:40)
[2022-02-01] MEDS ORDERED: KETOROLAC TROMETHAMINE 30 MG/ML VIAL ONE (08:40)
[2022-02-01] MEDS ORDERED: METRONIDAZOLE500 MG PO (09:14)
[2022-02-01] MEDS ORDERED: CIPRO500 MG PO (09:14)
[2022-02-01] MEDS ORDERED: ONDANSETRON ODT4 MG PO (09:15)
[2022-02-01] MEDS ORDERED: DICYCLOMINE HCL20 MG PO (09:16)
[2022-02-01] MEDS ORDERED: HYDROCODON-ACE1 EA12 PO (09:18)
== END 2022-02-01 09:50 | disposition home or self-care (01) ==
LOC: FSED 08:05
DX: R10.32 Left lower quadrant pain (principal); K57.32 Diverticulitis of large intestine without perforation or abscess without bleeding; R11.0 Nausea
CPT/HCPCS: 74177; 96374; 96376; 99284; J1885; J2405; J7030; Q9967

== ENCOUNTER 2024-06-15 17:52 | Emergency (ER) | payer OTHER ==
[~2024-06-15] VITALS: Ht 165.1 cm; Wt 108.9 kg
[~2024-06-15 17:52] MED LIST changes: +CIPRO500 MG PO; +DICYCLOMINE HCL20 MG PO; +HYDROCODON-ACE1 EA12 PO; +METRONIDAZOLE500 MG PO; +ONDANSETRON ODT4 MG PO
[2024-06-15 18:30] VITALS: PULSE 70; RESP 16; TEMP 98.8; O2SAT 100
[2024-06-15 18:56] LABS: COLOR,URINE YELLOW (YELLOW)
[2024-06-15 18:57] LABS: BILIRUBIN,URINE NEGATIVE (NEGATIVE); CLARITY,URINE SL CLOUDY (CLEAR); GLUCOSE, URINE NEGATIVE (NEGATIVE); KETONES,URINE NEGATIVE (NEGATIVE); LEUKOCYTE ESTERASE ,URINE NEGATIVE (NEGATIVE); NITRITE,URINE NEGATIVE (NEGATIVE); PH,URINE 7 (5 - 7); PROTEIN,URINE DIPSTICK NEGATIVE (NEGATIVE); URINE UROBILINOGEN 0.2 mg/dL (0.2 - 1)
[2024-06-15 19:08] LABS: BACTERIA,URINE FEW /HPF; EPITHELIAL CELLS,URINE FEW /LPF; WBC,URINE (MAN) 0-5 /HPF (0-5)
== END 2024-06-15 19:08 | disposition left against medical advice (07) ==
LOC: ER 18:20
DX: R10.30 Lower abdominal pain, unspecified (principal)
CPT/HCPCS: 81001

== ENCOUNTER 2024-06-15 19:12 | Emergency (ER) | payer OTHER ==
[~2024-06-15] VITALS: Ht 165.1 cm; Wt 108.9 kg
[2024-06-15 19:31] VITALS: TEMP 98.2
[2024-06-15] MEDS ORDERED: KETOROLAC TROMETHAMINE 30 MG/ML VIAL IV STA (20:40)
[2024-06-15] MEDS ORDERED: SODIUM CHLORIDE 0.9% 1000ML 1,000 ML IV STA (20:40)
[2024-06-15] MEDS ORDERED: ONDANSETRON HCL INJ 2MG/ML 2ML 2 MG/ML VIAL IV STA (20:40)
[2024-06-15 21:20] VITALS: PULSE 66; RESP 18; O2SAT 97
== END 2024-06-15 21:20 | disposition home or self-care (01) ==
LOC: FSED 19:26
DX: R10.30 Lower abdominal pain, unspecified (principal); N92.1 Excessive and frequent menstruation with irregular cycle; R11.0 Nausea; F41.9 Anxiety disorder, unspecified; Z87.19 Personal history of other diseases of the digestive system
CPT/HCPCS: 80053; 81025; 85025; 99283

== ENCOUNTER 2024-08-25 08:40 | Emergency (ER) | payer OTHER ==
[~2024-08-25] VITALS: Ht 165.1 cm; Wt 108.9 kg
[2024-08-25] MEDS: KETOROLAC TROMETHAMINE 30 MG/ML VIAL IM STA (09:04)
[2024-08-25] MEDS ORDERED: NAPROXEN250 MG PO (09:40)
[2024-08-25 09:50] VITALS: PULSE 62; RESP 16; TEMP 98.1; O2SAT 99
== END 2024-08-25 09:51 | disposition home or self-care (01) ==
LOC: ER 08:47
DX: M25.511 Pain in right shoulder (principal); W10.8XXA Fall (on) (from) other stairs and steps, initial encounter; Y93.01 Activity, walking, marching and hiking; Y92.89 Other specified places as the place of occurrence of the external cause; F41.9 Anxiety disorder, unspecified; Z87.19 Personal history of other diseases of the digestive system
CPT/HCPCS: 73030; 99283; J1885